=== PATIENT | female | born 1990 | race Caucasian/White ===

== ENCOUNTER → 2017-03-16 | Outpatient (CLI) | payer OTHER | END | disposition home or self-care (01) | LOC: LAB 11:34 | PROVIDERS: ATTEND Nurse Practitioner | DX: Z00.00 Encounter for general adult medical examination without abnormal findings (principal) | CPT/HCPCS: 36415; 86706; 86735; 86762; 86765; 86787 ==

== ENCOUNTER → 2018-05-05 | Outpatient (CLI) | payer BC ==
[2018-05-05 08:02] LABS: Basophils # (auto) 0 uL; Basophils % (auto) 0.3 % (0.0-2.0); Eosinophils # (auto) 0.1 uL; Eosinophils % (auto) 0.8 % (0.0-7.0); Hematocrit 42.7 % (36.0-46.0); Hemoglobin 14.2 g/dL (12.2-16.2); Lymphocytes # (auto) 2.2 uL; Lymphocytes % (auto) 28.5 % (10.0-50.0); Mean Corpuscular Hemoglobin 27.7 pg (28.0-32.0); Mean Corpuscular Hgb Conc. 33.3 g/dL (32.0-36.0); Mean Corpuscular Volume 83.2 fL (80.0-100.0); Monocytes # (auto) 0.7 uL; Monocytes % (auto) 9.7 % (0.0-12.0); Neutrophils # (auto) 4.6 uL; Neutrophils % (auto) 60.7 % (37.0-80.0); Platelet Count (auto) 206 10^3/uL (140-450); Red Blood Cells 5.13 10^6/uL (4.0-5.20); Red Cell Distribution Width 13.3 % (11.8-14.3); White Blood Cell 7.7 10^3/uL (4.4-10.8)
[2018-05-05 08:37] LABS: Free T3 3.02 pg/mL (2.3-4.2); Free T4 (Free Thyroxine) 1.13 ng/dL (0.89-1.76)
[2018-05-05 08:40] LABS: Albumin 3.6 g/dL (3.4-5.0); BUN/Creatinine Ratio 18.3; Bilirubin, Total 0.4 mg/dL (0.2-1.0); Calcium 8.4 mg/dL (8.5-10.1); Potassium 4.1 mmol/L (3.5-5.1); Total Protein 7.3 g/dL (6.4-8.2)
[2018-05-05 08:43] LABS: Urine Bacteria NONE SEEN /hpf (None Seen); Urine Blood 2+ /uL (Negative); Urine Mucus FEW (None Seen); Urine Specific Gravity 1.025 (1.001-1.035); Urine WBC 11 /hpf (0 - 5)
== END | disposition home or self-care (01) ==
LOC: LAB 07:24
PROVIDERS: ATTEND Internal Medicine
DX: Z13.228 Encounter for screening for other metabolic disorders (principal); Z76.89 Persons encountering health services in other specified circumstances
CPT/HCPCS: 36415; 80053; 80061; 81001; 83036; 84439; 84443; 84481; 85025

== ENCOUNTER → 2018-05-09 | Outpatient (CLI) | payer BC ==
[2018-05-10 13:38] LABS: RPR Non Reactive (Non Reactive)
== END | disposition home or self-care (01) ==
LOC: LAB 10:45
PROVIDERS: ATTEND Specialist
DX: Z11.3 Encounter for screening for infections with a predominantly sexual mode of transmission (principal); Z72.51 High risk heterosexual behavior
CPT/HCPCS: 86592; 86695; 86696; 86703

== ENCOUNTER → 2018-11-29 | Outpatient (CLI) | payer BC ==
[2018-11-29 11:38] LABS: Basophils # (auto) 0 uL; Basophils % (auto) 0.3 % (0.0-2.0); Eosinophils # (auto) 0 uL; Eosinophils % (auto) 0.5 % (0.0-7.0); Hemoglobin 14.4 g/dL (12.2-16.2); Lymphocytes # (auto) 1.6 uL; Lymphocytes % (auto) 25.9 % (10.0-50.0); Mean Corpuscular Hgb Conc. 32.6 g/dL (32.0-36.0); Mean Corpuscular Volume 82.6 fL (80.0-100.0); Monocytes # (auto) 0.4 uL; Monocytes % (auto) 7.3 % (0.0-12.0); Nucleated Red Blood Cells % 0.2 %; Platelet Count (auto) 235 10^3/uL (140-450); Red Blood Cells 5.33 10^6/uL (4.0-5.20); Red Cell Distribution Width 13.5 % (11.8-14.3); White Blood Cell 6.1 10^3/uL (4.4-10.8)
[2018-11-29 12:27] LABS: Cholesterol 160 mg/dL (< 200); Triglycerides 192 mg/dL (< 150)
[2018-11-29 12:29] LABS: HDL Cholesterol 48 mg/dL (40-59); LDL Cholesterol 100 mg/dL (< 100)
[2018-11-29 12:47] LABS: Beta HCG, Quantitative < 1 mlU/mL (1-3); Thyroid Stimulating Hormone 1.55 uIU/mL (0.358-3.74)
[2018-11-30 05:06] LABS: RPR Non Reactive (Non Reactive)
== END | disposition home or self-care (01) ==
LOC: LAB 10:55
PROVIDERS: ATTEND Specialist
DX: N93.9 Abnormal uterine and vaginal bleeding, unspecified (principal); N92.0 Excessive and frequent menstruation with regular cycle; N92.6 Irregular menstruation, unspecified; R53.83 Other fatigue; Z72.51 High risk heterosexual behavior; Z20.2 Contact with and (suspected) exposure to infections with a predominantly sexual mode of transmission
CPT/HCPCS: 36415; 80061; 83525; 84403; 84443; 84702; 85025; 86592; 86695; 86696; 86703

== ENCOUNTER → 2018-12-09 | Day surgery (SDC) | payer BC ==
[2018-12-06 12:28] LABS: Urine WBC None Seen /hpf (0 - 5)
[2018-12-06 12:35] LABS: Basophils # (auto) 0 uL; Basophils % (auto) 0.6 % (0.0-2.0); Eosinophils # (auto) 0 uL; Eosinophils % (auto) 0.7 % (0.0-7.0); Hemoglobin 14.4 g/dL (12.2-16.2); Lymphocytes # (auto) 1.7 uL; Mean Corpuscular Hemoglobin 26.8 pg (28.0-32.0); Monocytes # (auto) 0.5 uL; Neutrophils # (auto) 4.5 uL; White Blood Cell 6.7 10^3/uL (4.4-10.8)
[2018-12-06 12:37] LABS: Hematocrit 44.4 % (36.0-46.0); Lymphocytes % (auto) 24.8 % (10.0-50.0); Mean Corpuscular Hgb Conc. 32.3 g/dL (32.0-36.0); Mean Corpuscular Volume 82.8 fL (80.0-100.0); Monocytes % (auto) 6.9 % (0.0-12.0); Platelet Count (auto) 245 10^3/uL (140-450); Red Blood Cells 5.36 10^6/uL (4.0-5.20); Red Cell Distribution Width 13.2 % (11.8-14.3)
[2018-12-06 12:39] LABS: Urine Amorphous Crystal FEW /hpf (None Seen); Urine Bacteria NONE SEEN /hpf (None Seen); Urine Blood Negative /uL (Negative); Urine Specific Gravity 1.026 (1.001-1.035)
[2018-12-06 12:50] LABS: INR 0.93 (0.9-1.15); Partial Thromboplastin Time 26.1 sec (23.78-33.04)
[2018-12-06 12:55] LABS: Albumin 3.9 g/dL (3.4-5.0); BUN/Creatinine Ratio 26.7; Potassium 3.9 mmol/L (3.5-5.1)
[2018-12-06 13:07] LABS: Bilirubin, Total 0.5 mg/dL (0.2-1.0); Total Protein 7.7 g/dL (6.4-8.2)
[~2018-12-09] VITALS: Ht 152.4 cm; Wt 93.0 kg
[~2018-12-09] MED LIST: LACTATED RINGER'S 1,000 ML IV SCH; MIDAZOLAM HCL 1MG/1ML-2 ML VIAL ONE; MULT1TAB95 PO; ONDANSETRON HCL 4 MG/2 ML VIAL IV ONE; ONDANSETRON HCL 4 MG/2 ML VIAL IV PRN; PROPOFOL 10 MG/ML 20 ML IV ONE; SUCCINYLCHOLINE CHLORIDE 20 MG/ML 10ML VIAL IV ONE; ceFAZolin 1GM VL IV ONE; ePHEDrine SULFATE 50 MG/ML AMP IV PRN; fentaNYL CITRATE 100 MCG/2 ML VL IV ONE; fentaNYL CITRATE 100 MCG/2 ML VL IV PRN; fentaNYL CITRATE 100 MCG/2 ML VL ONE; hydrALAZINE HCL 20 MG/ML VL IV PRN
[2018-12-09 09:10] VITALS: BP 121/64
== END | disposition home or self-care (01) ==
LOC: SUR 06:01
PROVIDERS: ATTEND Specialist
DX: N92.1 Excessive and frequent menstruation with irregular cycle (principal); N93.9 Abnormal uterine and vaginal bleeding, unspecified; E66.9 Obesity, unspecified; N85.2 Hypertrophy of uterus; Z68.41 Body mass index [BMI] 40.0-44.9, adult
CPT/HCPCS: 36415; 58558; 80053; 81001; 84702; 85025; 85610; 85730; 86850; 86900; 86901; J2250; J2405; J2704; J3010; J0330; J0690

== ENCOUNTER 2019-01-28 22:13 | Emergency (ER) | payer BC ==
[~2019-01-28] VITALS: Ht 144.8 cm; Wt 90.7 kg
[~2019-01-28 22:13] MED LIST changes: -LACTATED RINGER'S 1,000 ML IV SCH; -MIDAZOLAM HCL 1MG/1ML-2 ML VIAL ONE; -ONDANSETRON HCL 4 MG/2 ML VIAL IV ONE; -ONDANSETRON HCL 4 MG/2 ML VIAL IV PRN; -PROPOFOL 10 MG/ML 20 ML IV ONE; -SUCCINYLCHOLINE CHLORIDE 20 MG/ML 10ML VIAL IV ONE; -ceFAZolin 1GM VL IV ONE; -ePHEDrine SULFATE 50 MG/ML AMP IV PRN; -fentaNYL CITRATE 100 MCG/2 ML VL IV ONE; -fentaNYL CITRATE 100 MCG/2 ML VL IV PRN; -fentaNYL CITRATE 100 MCG/2 ML VL ONE; -hydrALAZINE HCL 20 MG/ML VL IV PRN
[2019-01-28] MEDS ORDERED: SODIUM CHLORIDE 0.9% 1,000 ML IV ONE (22:45)
[2019-01-28 23:42] LABS: BUN/Creatinine Ratio 17.6; Calcium 8.9 mg/dL (8.5-10.1); Potassium 3.6 mmol/L (3.5-5.1)
[2019-01-28 23:44] LABS: Bilirubin, Total 0.2 mg/dL (0.2-1.0); Total Protein 7.9 g/dL (6.4-8.2)
[2019-01-28 23:45] LABS: Basophils # (auto) 0 uL; Basophils % (auto) 0.6 % (0.0-2.0); Eosinophils # (auto) 0.1 uL; Eosinophils % (auto) 0.8 % (0.0-7.0); Hematocrit 40.8 % (36.0-46.0); Hemoglobin 13.3 g/dL (12.2-16.2); Lymphocytes # (auto) 2.1 uL; Lymphocytes % (auto) 26.2 % (10.0-50.0); Mean Corpuscular Hgb Conc. 32.7 g/dL (32.0-36.0); Mean Corpuscular Volume 82.5 fL (80.0-100.0); Monocytes # (auto) 0.7 uL; Monocytes % (auto) 8.6 % (0.0-12.0); Neutrophils # (auto) 5.2 uL; Neutrophils % (auto) 63.8 % (37.0-80.0); Nucleated Red Blood Cells % 0.2 %; Platelet Count (auto) 217 10^3/uL (140-450); Red Blood Cells 4.95 10^6/uL (4.0-5.20); Red Cell Distribution Width 13.5 % (11.8-14.3); White Blood Cell 8.2 10^3/uL (4.4-10.8)
[2019-01-28 23:56] LABS: Urine Bacteria NONE SEEN /hpf (None Seen); Urine Blood 2+ /uL (Negative); Urine Specific Gravity 1.029 (1.001-1.035); Urine WBC 16 /hpf (0 - 5)
[2019-01-29 00:06] LABS: INR < 0.93 (0.9-1.15); Partial Thromboplastin Time 23.3 sec (23.64-32.05)
[2019-01-29 04:02] VITALS: BP 95/54
== END 2019-01-29 04:03 | disposition home or self-care (01) ==
LOC: EEVIPCON 22:18 → ER 22:18
DX: N93.8 Other specified abnormal uterine and vaginal bleeding (principal)
CPT/HCPCS: 36415; 76830; 76856; 80053; 81001; 84702; 85025; 85610; 85730; 86850; 86900; 86901; 94761; 99284; J7030

== ENCOUNTER → 2019-02-01 | Outpatient (CLI) | payer BC ==
[2019-02-01 10:25] LABS: Basophils # (auto) 0 uL; Eosinophils # (auto) 0 uL; Eosinophils % (auto) 0.4 % (0.0-7.0); Hemoglobin 12.6 g/dL (12.2-16.2); Lymphocytes % (auto) 30.8 % (10.0-50.0); Neutrophils # (auto) 3.1 uL
[2019-02-01 10:27] LABS: Basophils % (auto) 0.9 % (0.0-2.0); Hematocrit 38.8 % (36.0-46.0); Lymphocytes # (auto) 1.5 uL; Mean Corpuscular Hemoglobin 26.9 pg (28.0-32.0); Mean Corpuscular Hgb Conc. 32.6 g/dL (32.0-36.0); Mean Corpuscular Volume 82.6 fL (80.0-100.0); Monocytes # (auto) 0.3 uL; Monocytes % (auto) 6.6 % (0.0-12.0); Neutrophils % (auto) 61.3 % (37.0-80.0); Nucleated Red Blood Cells % 0.1 %; Platelet Count (auto) 206 10^3/uL (140-450); Red Cell Distribution Width 13.4 % (11.8-14.3)
== END | disposition home or self-care (01) ==
LOC: LAB 10:08
PROVIDERS: ATTEND Specialist
DX: N93.9 Abnormal uterine and vaginal bleeding, unspecified (principal)
CPT/HCPCS: 36415; 85025

== ENCOUNTER 2023-08-01 12:35 | Emergency (ER) | payer BC ==
[~2023-08-01] VITALS: Ht 149.9 cm; Wt 83.6 kg
[2023-08-01 14:50] VITALS: BP 116/72; PULSE 79; RESP 18; TEMP 98.3; O2SAT 95
[2023-08-01 15:07] LABS: Urine Bacteria NONE SEEN /hpf (None Seen); Urine Blood 3+ /uL (Negative); Urine Clarity Clear (Clear); Urine Color Yellow (Yellow); Urine Protein, UAD TRACE (Negative); Urine Specific Gravity 1.018 (1.001-1.035); Urine WBC <1 /hpf (0 - 5); Urine pH 6.5 (5.0-8.0)
[2023-08-01] MEDS ORDERED: cefTRIAXone SOD 1,000 MG VL IM ONE (15:30)
[2023-08-01] MEDS ORDERED: KETOROLAC TROMETH 30 MG/ML 1ML VIAL IM ONE (15:30)
[2023-08-01] MEDS ORDERED: LEVO750T40 PO (15:31)
== END 2023-08-01 15:41 | disposition home or self-care (01) ==
LOC: ER 12:35
DX: N30.80 Other cystitis without hematuria (principal); Z79.899 Other long term (current) drug therapy
CPT/HCPCS: 81001; 87086; 96372; 99283; J0696